=== PATIENT | male | born 1980 | race Caucasian/White ===

== ENCOUNTER 2016-10-25 21:51 | Emergency (ER) | payer OTHER ==
[~2016-10-25] VITALS: Ht 190.5 cm; Wt 81.8 kg
[~2016-10-25 21:51] MED LIST: ONDA4TAB9 PO
[2016-10-25 21:59] VITALS: BP 139/73; PULSE 87; RESP 21; O2SAT 99
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
[2016-10-25 22:56] VITALS: BP 114/53; PULSE 68; RESP 11; O2SAT 97
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
== END 2016-10-25 22:57 | disposition home or self-care (01) ==
LOC: SED 21:51
DX: S20.211A Contusion of right front wall of thorax, initial encounter (principal); V48.5XXA Car driver injured in noncollision transport accident in traffic accident, initial encounter; Y93.89 Activity, other specified; Y92.410 Unspecified street and highway as the place of occurrence of the external cause; Y99.8 Other external cause status; F17.200 Nicotine dependence, unspecified, uncomplicated; Z88.5 Allergy status to narcotic agent; Z88.8 Allergy status to other drugs, medicaments and biological substances

== ENCOUNTER 2016-12-20 02:40 | Emergency (ER) | payer OTHER ==
[~2016-12-20] VITALS: Ht 188 cm; Wt 79.1 kg
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
[2016-12-20 02:51] VITALS: BP 139/95; PULSE 64; RESP 15; O2SAT 100
[2016-12-20 03:47] VITALS: BP 114/68; PULSE 60; RESP 10; O2SAT 100
[2016-12-20 03:49] LABS: BASOPHILS % (AUTO) 0.3 % (0-3); EOSINOPHILS % (AUTO) 0.7 % (0-5); MONOCYTES % (AUTO) 8.5 % (4-12); Mean Corpuscular Hemoglobin 32.4 pg (27.0-35.0); NEUTROPHILS % (AUTO) 77.6 % (40-74); Platelet Count 195 bil/L (150-400)
[2016-12-20 04:46] VITALS: BP 111/58; PULSE 58; RESP 9; O2SAT 98
[2016-12-20 06:52] VITALS: BP 102/63; PULSE 63; RESP 10; O2SAT 91
[2016-12-20 08:11] VITALS: BP 101/48; PULSE 68; RESP 11; O2SAT 95
[2016-12-20 09:28] VITALS: BP 94/47; PULSE 66; RESP 12; O2SAT 96
[2016-12-20] MEDS ORDERED: 0.9% Sodium Chloride 1,000 ML IV SCH (09:45)
[2016-12-20] MEDS ORDERED: SERT50TA PO (12:16)
[2016-12-20] MEDS ORDERED: BUPR150T12 PO (12:16)
[2016-12-20] MEDS ORDERED: ONDA4TAB9 PO (12:16)
[2016-12-20] MEDS ORDERED: Ondansetron 2 mg/mL 2 mL Inj ONE (14:02)
[2016-12-20] MEDS ORDERED: Ondansetron 8 mg ODT Tablet PO ONE (14:05)
== END 2016-12-20 15:53 | disposition home or self-care (01) ==
LOC: SED 02:40
DX: T40.1X2A Poisoning by heroin, intentional self-harm, initial encounter (principal); X58.XXXA Exposure to other specified factors, initial encounter; Y93.89 Activity, other specified; Y92.9 Unspecified place or not applicable; Y99.8 Other external cause status; F17.200 Nicotine dependence, unspecified, uncomplicated; Z88.5 Allergy status to narcotic agent; Z88.6 Allergy status to analgesic agent
CPT/HCPCS: 36415; 80053; 84443; 85025; 96361; 96374; 99285; G0480; J2405; J7030